=== PATIENT | male | born 1940 | race Caucasian/White ===

== ENCOUNTER → 2016-07-10 | Outpatient (CLI) | payer MEDICARE, OTHER ==
[~2016-07-10] MED LIST: ASPIRIN CHEWABL81 MG PO; LEVOTHYROXINE100 MCG PO; LIPITOR TAB 2020 MG PO; NORVASC10 MG PO; PREDNISONE 20 M20 MG PO
== END ==
LOC: SLEEP 21:30
DX: G47.33 Obstructive sleep apnea (adult) (pediatric) (principal)
CPT/HCPCS: 95811

== ENCOUNTER → 2020-04-19 | Outpatient (CLI) | payer MEDICARE, OTHER | LOC: MRI 13:08 | DX: H90.3 Sensorineural hearing loss, bilateral (principal) | CPT/HCPCS: 36415; 70553; 82565; 84520; A9577 ==

== ENCOUNTER 2020-05-19 01:46 | Emergency (ER) | payer MEDICARE, OTHER ==
[2020-05-19 02:35] LABS: HEMOGLOBIN 13.3 gm/dl (14.0-17.5); RED BLOOD COUNT 4.24 M/UL (4.20-5.50); WHITE BLOOD COUNT 12.8 K/UL (4.5-11.0)
[2020-05-19 02:50] LABS: BUN/CREATININE RATIO 26 (0-10)
[2020-05-20 00:40] LABS: ACINETOBACTER BAUMANNII Not Detected (Negative); CANDIDA ALBICANS Not Detected (Negative); CANDIDA KRUSEI Not Detected (Negative); CANDIDA TROPICALIS Not Detected (Negative); ENTEROCOCCUS Not Detected (Negative); HAEMOPHILUS INFLUENZAE Not Detected (Negative); KLEBSIELLA OXYTOCA Not Detected (Negative); KLEBSIELLA PNEUMONIAE Not Detected (Negative); KPC-CARBAPENEM-RESISTANCE GENE Not Detected (Negative); PROTEUS Not Detected (Negative); PSEUDOMONAS AERUGINOSA Not Detected (Negative); SERRATIA MARCESANS Not Detected (Negative); STAPHYLOCOCCUS Not Detected (Negative); STAPHYLOCOCCUS AUREUS Not Detected (Negative); STREP AGALACTIAE (GROUP B) Not Detected (Negative); STREP PYOGENES (GROUP A) Not Detected (Negative); STREPTOCOCCUS Not Detected (Negative); mecA (METHICILLIN RESIST GENE Not Detected (Negative); vanA/B (VANCOMYCIN RESIST GENE Not Detected (Negative)
[2020-05-20 00:42] LABS: ESCHERICHIA COLI DETECTED (Negative)
== END 2020-05-19 10:30 | disposition short-term general hospital (02) ==
LOC: ER1 01:46
PROVIDERS: Emergency Medicine
DX: A41.9 Sepsis, unspecified organism (principal); N13.2 Hydronephrosis with renal and ureteral calculous obstruction; I10 Essential (primary) hypertension; Z20.822 Contact with and (suspected) exposure to COVID-19
CPT/HCPCS: 0240U; 36600; 70450; 71045; 80053; 81001; 82550; 82553; 82803; 83605; 83690; 84484; 85025; 85610; 85730; 87040; 87077; 87150; 87186; 93005; 94640; 94664; 96365; 96375; 99285; J0696; J2930; Q9967

== ENCOUNTER → 2021-03-19 | Outpatient (CLI) | payer MEDICARE, OTHER | LOC: RAD 12:06 | DX: R10.9 Unspecified abdominal pain (principal) | CPT/HCPCS: 74019 ==